=== PATIENT | male | born 1945 | race Two or more races ===

== ENCOUNTER 2022-08-21 11:35 | Inpatient (IN) | payer MEDICARE ==
[~2022-08-21] VITALS: Ht 160 cm; Wt 76.0 kg
[~2022-08-21 11:35] MED LIST: AMLO-257 PO; ASPI81TA87 PO; CHOL500043 PO; CLOP75TA60 PO; DOCU-385 PO; GLYB-145 PO; INSU100V SQ; LISI-893 PO; MODA100T65 PO; TAMS-13 PO
[2022-08-21] MEDS ORDERED: METF-1211 PO (11:56)
[2022-08-21 12:06] LABS: GLUCOSE,POINT OF CARE 220 MG/DL (70-110)
[2022-08-21 12:12] LABS: BASOPHILS % (AUTO) 0.2 % (0.0-2.0); EOSINOPHILS % (AUTO) 0.5 % (1.0-6.0); HEMATOCRIT 37.3 % (41-53); HEMOGLOBIN 12.3 g/dL (13.5-17.5); LYMPHOCYTES # (AUTO) 0.8 K/uL (1.0-4.8); LYMPHOCYTES % (AUTO) 6.8 % (22.0-44.0); MEAN CORPUSCULAR HEMOGLOBIN 31.5 pg (26.0-34.0); MEAN CORPUSCULAR HGB CONC 32.9 G/dL (31.0-37.0); MEAN CORPUSCULAR VOLUME 96 fL (80-100); MONOCYTES # (AUTO) 1.5 K/uL (0.1-1.0); MONOCYTES % (AUTO) 12.6 % (2.0-9.0); NEUTROPHILS # (AUTO) 9.2 K/uL (1.8-7.7); NEUTROPHILS % (AUTO) 79.9 % (40.0-70.0); PLATELET COUNT (AUTO) 239 K/uL (150-450)
[2022-08-21 12:19] LABS: CALCIUM, TOTAL 8.7 mg/dL (8.8-10.5); CREATININE 1.22 mg/dL (0.60-1.30); POTASSIUM 3.3 mmol/L (3.5-5.1)
[2022-08-21 12:23] LABS: PROTHROMBIN TIME 10.8 SEC (9.4-11.6)
[2022-08-21 12:42] LABS: COVID AG,FIA SOURCE NASAL SWAB
[2022-08-21 12:45] LABS: ALBUMIN 2.5 g/dL (3.4-5.0); BILIRUBIN,TOTAL 0.5 mg/dL (0.1-1.0); TOTAL PROTEIN, SERUM 6.8 g/dL (6.4-8.2)
[2022-08-21 12:50] LABS: ABG BASE EXCESS 1.5 mmol/L (-2.0-3.0); ABG CARBOXYHEMOGLOBIN 0.7 % (0.0-1.5); ABG METHEMOGLOBIN 0.3 % (0.0-1.5); ABG OXYGEN SATURATION 96.1 % (95.0-98.0); ABG OXYHEMOGLOBIN 95.1 % (94.0-100.0); ABG PCO2 36 mmHg (35-45); ABG PH 7.462 (7.35-7.450); ABG TOTAL HEMOGLOBIN 12.7 G/dL (12.0-18.0); PO2, ARTERIAL BG 84.2 mmHg (75.0-83.0); SOURCE, BLOOD GAS ARTERIAL
[2022-08-21 12:52] LABS: O2 DEVICE,BLOOD GAS BIPAP (ROOM AIR); SITE, BLOOD GAS LFT BRACHIAL; SPONTANEOUS VT, BG 412 ml
[2022-08-21] MEDS ORDERED: BACTDSB PO (13:02)
[2022-08-21] MEDS: FUROSEMIDE 40 MG/4 ML VIAL IVP SCH ×2 (13:11→20:29)
[2022-08-21] MEDS ORDERED: HEPARIN SODIUM,PORCINE 5,000 UNITS/ML VIAL IVP ONE ×2 (13:15)
[2022-08-21] MEDS ORDERED: HEPARIN SODIUM 25000 UNITS/D5W 250 ML IV PRN (13:15)
[2022-08-21] MEDS ORDERED: HEPARIN SODIUM,PORCINE 5,000 UNITS/ML VIAL IVP PRN ×2 (13:15)
[2022-08-21] MEDS: ATORVASTATIN CALCIUM 20 MG TABLET PO SCH (16:14)
[2022-08-21] MEDS ORDERED: MAGNESIUM HYDROXIDE SUSPENSION 30 ML UDCUP PO PRN (16:15)
[2022-08-21] MEDS ORDERED: BISACODYL 10 MG RECTAL RECTAL SUPPOSITORY PR PRN (16:15)
[2022-08-21] MEDS ORDERED: ZOLPIDEM TARTRATE 5 MG TABLET PO PRN (16:15)
[2022-08-21] MEDS ORDERED: DEXTROSE 50%-WATER 25 GM/50 ML SYRINGE IVP PRN (16:15)
[2022-08-21] MEDS ORDERED: MORPHINE SULFATE 2 MG/ML SYRINGE IVP PRN (16:15)
[2022-08-21] MEDS ORDERED: ONDANSETRON HCL 4 MG/2 ML VIAL IVP PRN (16:15)
[2022-08-21] MEDS ORDERED: ACETAMINOPHEN 325 MG TABLET PO PRN (16:15)
[2022-08-21] MEDS ORDERED: HYDROCODONE/ACETAMINOPHEN 5-325 MG TABLET PO PRN (16:15)
[2022-08-21 17:55] VITALS: BP 140/67
[2022-08-21 19:50] LABS: APPEARANCE,URINE CLEAR (CLEAR); BILIRUBIN,URINE NEGATIVE (NEGATIVE); GLUCOSE, URINE (UA) TRACE mg/dL (NEGATIVE); KETONES,URINE NEGATIVE (NEGATIVE); LEUKOCYTE ESTERASE ,URINE SMALL (NEGATIVE); NITRATE,URINE NEGATIVE (NEGATIVE); OCCULT BLOOD,URINE NEGATIVE (NEGATIVE); PROTEIN,URINE TRACE mg/dL (NEGATIVE); SPECIFIC GRAVITIY, URINE 1.012 (1.003-1.030); UROBILINOGEN,URINE <=1.0 mg/dL (<=1.0)
[2022-08-21 19:56] LABS: BACTERIA,URINE Rare /HPF (None Seen); FINE GRANULAR CASTS,URINE 0-2 /LPF (None Seen); RBC,URINE None Seen /HPF (0-2); SQUAMOUS EPITHELIAL CELL,UR Few /LPF (None Seen); WBC,URINE 0-2 /HPF (0-5)
[2022-08-21 20:05] VITALS: BP 128/65
[2022-08-21] MEDS: CefTRIAXone 1 GM/DEXTROSE 50 ML IV SCH (20:28)
[2022-08-21] MEDS: CARVEDILOL 6.25 MG TABLET PO SCH (20:29)
[2022-08-21] MEDS: DOCUSATE SODIUM 100 MG CAPSULE PO SCH (20:29)
[2022-08-21] MEDS ORDERED: SODIUM CHLORIDE 0.9% 1,000 ML ONE (21:01)
[2022-08-21 21:41] LABS: GLUCOMETER DEV NAME(LOC) 5N.2C; GLUCOSE,POINT OF CARE 187 MG/DL (70-110)
[2022-08-21] MEDS: DOXYCYCLINE HYCLATE 100 MG in DEXTROSE 5%-WATER 100 ML IV SCH (23:36)
[2022-08-21 23:41] LABS: GLUCOMETER DEV NAME(LOC) 5S.2C; GLUCOSE,POINT OF CARE 172 MG/DL (70-110)
[2022-08-22] MEDS ORDERED: HEPARIN SODIUM,PORCINE 5,000 UNITS/ML VIAL SQ SCH
[2022-08-22 00:09] VITALS: BP 124/41
[2022-08-22] MEDS ORDERED: HEPARIN SODIUM,PORCINE 5,000 UNITS/ML VIAL IVP PRN (06:15)
[2022-08-22] MEDS ORDERED: HEPARIN SODIUM,PORCINE 5,000 UNITS/ML VIAL IVP ONE (06:15)
[2022-08-22] MEDS: HEPARIN SODIUM 25000 UNITS/D5W 250 ML IV PRN ×2 (06:41→22:26)
[2022-08-22 06:45] LABS: BASOPHILS % (AUTO) 0.1 % (0.0-2.0); EOSINOPHILS % (AUTO) 0.7 % (1.0-6.0); HEMATOCRIT 35.5 % (41-53); HEMOGLOBIN 12.1 g/dL (13.5-17.5); LYMPHOCYTES # (AUTO) 0.7 K/uL (1.0-4.8); LYMPHOCYTES % (AUTO) 6.3 % (22.0-44.0); MEAN CORPUSCULAR HEMOGLOBIN 32.3 pg (26.0-34.0); MEAN CORPUSCULAR HGB CONC 34.2 G/dL (31.0-37.0); MEAN CORPUSCULAR VOLUME 94 fL (80-100); MONOCYTES # (AUTO) 1.2 K/uL (0.1-1.0); MONOCYTES % (AUTO) 10.9 % (2.0-9.0); NEUTROPHILS # (AUTO) 8.9 K/uL (1.8-7.7); PLATELET COUNT (AUTO) 259 K/uL (150-450); RED BLOOD CELL COUNT(AUTO) 3.76 MIL/uL (4.50-5.90); RED CELL DISTRIBUTION WIDTH 14.2 % (11.5-14.5)
[2022-08-22] MEDS: INSULIN LISPRO 100 UNITS/ML SQ PRN ×4 (06:47→20:46)
[2022-08-22 06:52] VITALS: BP 120/60
[2022-08-22 07:04] LABS: ANION GAP 7 mmol/L (8-16); CALCIUM, TOTAL 8.3 mg/dL (8.8-10.5); CARBON DIOXIDE 30 mmol/L (22-29); CHLORIDE 103 mmol/L (98-107); CHOL/HDL RATIO 6.7 (4.2-7.3); CHOLESTEROL 120 mg/dL (131-200); GLOMERULAR FILTR. RATE CALC > 60 mL/min (>60); GLUCOSE,RANDOM 209 mg/dL (70-110); HDL CHOLESTEROL 18 mg/dL (40-60); LDL CHOL (CALC.) 73 mg/dL (0-130); POTASSIUM 3.6 mmol/L (3.5-5.1); SODIUM SERUM 140 mmol/L (136-145); TRIGLYCERIDES 146 mg/dL (15-150); UREA NITROGEN, BLOOD 26 mg/dL (7-18)
[2022-08-22] MEDS: DOXYCYCLINE HYCLATE 100 MG in DEXTROSE 5%-WATER 100 ML IV SCH ×2 (08:05→22:00)
[2022-08-22] MEDS: ATORVASTATIN CALCIUM 20 MG TABLET PO SCH (08:05)
[2022-08-22] MEDS: FUROSEMIDE 40 MG/4 ML VIAL IVP SCH ×2 (08:05→20:44)
[2022-08-22] MEDS: DOCUSATE SODIUM 100 MG CAPSULE PO SCH ×2 (08:05→20:44)
[2022-08-22] MEDS: CARVEDILOL 6.25 MG TABLET PO SCH ×2 (08:05→20:44)
[2022-08-22] MEDS: ASPIRIN 81 MG DR TABLET PO SCH (08:05)
[2022-08-22] MEDS: PANTOPRAZOLE SODIUM 40 MG DR TABLET PO SCH (08:05)
[2022-08-22] MEDS: HEPARIN SODIUM,PORCINE 5,000 UNITS/ML VIAL IVP PRN (08:08)
[2022-08-22 08:10] VITALS: BP 122/60
[2022-08-22 10:16] LABS: GLUCOMETER DEV NAME(LOC) 5N.2C; GLUCOSE,POINT OF CARE 221 MG/DL (70-110)
[2022-08-22 11:34] VITALS: BP 127/59
[2022-08-22 15:19] VITALS: BP 115/63
[2022-08-22 20:36] VITALS: BP 123/52
[2022-08-22] MEDS: CefTRIAXone 1 GM/DEXTROSE 50 ML IV SCH (20:44)
[2022-08-23 00:21] VITALS: BP 141/70
[2022-08-23 06:21] LABS: GLUCOMETER DEV NAME(LOC) 5S.1B; GLUCOSE,POINT OF CARE 279 MG/DL (70-110)
[2022-08-23 06:21] LABS: GLUCOMETER DEV NAME(LOC) 5S.1B; GLUCOSE,POINT OF CARE 226 MG/DL (70-110)
[2022-08-23 06:21] LABS: GLUCOMETER DEV NAME(LOC) 5S.1B; GLUCOSE,POINT OF CARE 207 MG/DL (70-110)
[2022-08-23] MEDS: INSULIN LISPRO 100 UNITS/ML SQ PRN ×2 (06:46→12:30)
[2022-08-23 07:04] VITALS: BP 124/69
[2022-08-23 07:49] VITALS: BP 135/59
[2022-08-23 07:57] LABS: BASOPHILS % (AUTO) 0.3 % (0.0-2.0); EOSINOPHILS % (AUTO) 1.6 % (1.0-6.0); HEMATOCRIT 36.2 % (41-53); LYMPHOCYTES # (AUTO) 0.8 K/uL (1.0-4.8); LYMPHOCYTES % (AUTO) 9.4 % (22.0-44.0); MEAN CORPUSCULAR HEMOGLOBIN 31.7 pg (26.0-34.0); MEAN CORPUSCULAR HGB CONC 33.2 G/dL (31.0-37.0); MEAN CORPUSCULAR VOLUME 95 fL (80-100); MONOCYTES # (AUTO) 1.1 K/uL (0.1-1.0); MONOCYTES % (AUTO) 12.7 % (2.0-9.0); NEUTROPHILS # (AUTO) 6.7 K/uL (1.8-7.7); PLATELET COUNT (AUTO) 331 K/uL (150-450); RED BLOOD CELL COUNT(AUTO) 3.79 MIL/uL (4.50-5.90); RED CELL DISTRIBUTION WIDTH 14.1 % (11.5-14.5)
[2022-08-23 08:06] LABS: GLUCOMETER DEV NAME(LOC) 5N.2C; GLUCOSE,POINT OF CARE 193 MG/DL (70-110)
[2022-08-23 08:07] LABS: ANION GAP 8 mmol/L (8-16); CALCIUM, TOTAL 8.4 mg/dL (8.8-10.5); CARBON DIOXIDE 29 mmol/L (22-29); CHLORIDE 103 mmol/L (98-107); CREATININE 1.14 mg/dL (0.60-1.30); GLOMERULAR FILTR. RATE CALC > 60 mL/min (>60); GLUCOSE,RANDOM 234 mg/dL (70-110); POTASSIUM 3.5 mmol/L (3.5-5.1); SODIUM SERUM 140 mmol/L (136-145); UREA NITROGEN, BLOOD 32 mg/dL (7-18)
[2022-08-23] MEDS: DOXYCYCLINE HYCLATE 100 MG in DEXTROSE 5%-WATER 100 ML IV SCH ×2 (10:38→22:12)
[2022-08-23] MEDS: FUROSEMIDE 40 MG/4 ML VIAL IVP SCH ×2 (10:38→20:31)
[2022-08-23] MEDS: CARVEDILOL 6.25 MG TABLET PO SCH ×2 (10:39→20:32)
[2022-08-23] MEDS: ASPIRIN 81 MG DR TABLET PO SCH (10:39)
[2022-08-23] MEDS: DOCUSATE SODIUM 100 MG CAPSULE PO SCH ×2 (10:39→20:32)
[2022-08-23] MEDS: PANTOPRAZOLE SODIUM 40 MG DR TABLET PO SCH (10:39)
[2022-08-23] MEDS: ATORVASTATIN CALCIUM 20 MG TABLET PO SCH (10:39)
[2022-08-23 12:02] VITALS: BP 127/57
[2022-08-23 15:42] VITALS: BP 120/71
[2022-08-23] MEDS: HEPARIN SODIUM 25000 UNITS/D5W 250 ML IV PRN (19:19)
[2022-08-23] MEDS: CefTRIAXone 1 GM/DEXTROSE 50 ML IV SCH (20:23)
[2022-08-23 20:28] VITALS: BP 108/62
[2022-08-24] VITALS (15 sets, daily range): BP systolic 122–149; BP diastolic 52–87
[2022-08-24] MEDS: INSULIN LISPRO 100 UNITS/ML SQ PRN (05:40)
[2022-08-24 06:01] LABS: GLUCOMETER DEV NAME(LOC) 5S.1B; GLUCOSE,POINT OF CARE 195 MG/DL (70-110)
[2022-08-24 06:02] LABS: GLUCOMETER DEV NAME(LOC) 5S.1B; GLUCOSE,POINT OF CARE 153 MG/DL (70-110)
[2022-08-24 06:02] LABS: GLUCOMETER DEV NAME(LOC) 5S.1B; GLUCOSE,POINT OF CARE 133 MG/DL (70-110)
[2022-08-24 07:19] LABS: ANION GAP 10 mmol/L (8-16); CALCIUM, TOTAL 8.7 mg/dL (8.8-10.5); CARBON DIOXIDE 30 mmol/L (22-29); CHLORIDE 100 mmol/L (98-107); CREATININE 1.07 mg/dL (0.60-1.30); GLOMERULAR FILTR. RATE CALC > 60 mL/min (>60); GLUCOSE,RANDOM 159 mg/dL (70-110); POTASSIUM 3.6 mmol/L (3.5-5.1); SODIUM SERUM 140 mmol/L (136-145); UREA NITROGEN, BLOOD 29 mg/dL (7-18)
[2022-08-24 07:25] LABS: BASOPHILS % (AUTO) 0.9 % (0.0-2.0); EOSINOPHILS % (AUTO) 1.1 % (1.0-6.0); HEMATOCRIT 36.8 % (41-53); HEMOGLOBIN 12.4 g/dL (13.5-17.5); MEAN CORPUSCULAR HEMOGLOBIN 32.5 pg (26.0-34.0); MEAN CORPUSCULAR HGB CONC 33.8 G/dL (31.0-37.0); MEAN CORPUSCULAR VOLUME 96 fL (80-100); MONOCYTES # (AUTO) 1.1 K/uL (0.1-1.0); NEUTROPHILS # (AUTO) 8.5 K/uL (1.8-7.7); PLATELET COUNT (AUTO) 360 K/uL (150-450); RED BLOOD CELL COUNT(AUTO) 3.82 MIL/uL (4.50-5.90); RED CELL DISTRIBUTION WIDTH 14.1 % (11.5-14.5)
[2022-08-24] MEDS: HEPARIN SODIUM 25000 UNITS/D5W 250 ML IV PRN (08:50)
[2022-08-24] MEDS: HEPARIN SODIUM,PORCINE 5,000 UNITS/ML VIAL IVP PRN (09:03)
[2022-08-24] MEDS: DOCUSATE SODIUM 100 MG CAPSULE PO SCH ×2 (09:06→20:11)
[2022-08-24] MEDS: DOXYCYCLINE HYCLATE 100 MG in DEXTROSE 5%-WATER 100 ML IV SCH ×2 (09:06→20:20)
[2022-08-24] MEDS: PANTOPRAZOLE SODIUM 40 MG DR TABLET PO SCH (09:08)
[2022-08-24] MEDS: CARVEDILOL 6.25 MG TABLET PO SCH ×2 (09:08→20:11)
[2022-08-24] MEDS: ATORVASTATIN CALCIUM 20 MG TABLET PO SCH (09:08)
[2022-08-24] MEDS: FUROSEMIDE 40 MG/4 ML VIAL IVP SCH ×2 (09:08→20:11)
[2022-08-24] MEDS: ASPIRIN 81 MG DR TABLET PO SCH (09:09)
[2022-08-24] MEDS ORDERED: PERFLUTREN PROTEIN-A MICROSPHERES 0.22 MG/ML 3 ML VIAL IVP ONE (10:15)
[2022-08-24] MEDS ORDERED: SODIUM BICARBONATE 50 MEQ/50 ML VIAL ONE (11:50)
[2022-08-24] MEDS ORDERED: LIDOCAINE/PF 1% 30 ML VIAL ONE (11:50)
[2022-08-24] MEDS ORDERED: NITROGLYCERIN 50 MG/D5% WATER 250 ML ONE (11:50)
[2022-08-24] MEDS ORDERED: VERAPAMIL HCL 2.5 MG/ML 2 ML VIAL ONE (11:50)
[2022-08-24] MEDS ORDERED: IOHEXOL 300 MG/ML 100 ML VIAL ONE ×2 (11:51→13:19)
[2022-08-24] MEDS ORDERED: HEPARIN SODIUM 1000 UNITS/NS 1,000 ML ONE (11:51)
[2022-08-24] MEDS ORDERED: FentaNYL CITRATE PF 100 MCG/2 ML VIAL ONE (12:33)
[2022-08-24] MEDS ORDERED: LIDOCAINE 1% 30 ML/SOD BICARB 8.4% 4 ML SQ ONE (12:45)
[2022-08-24] MEDS ORDERED: VERAPAMIL HCL 2.5 MG/ML 2 ML VIAL IARTER ONE (12:45)
[2022-08-24] MEDS ORDERED: HEPARIN SODIUM 1000 UNITS/NS 1,000 ML IARTER ONE (12:45)
[2022-08-24] MEDS ORDERED: NITROGLYCERIN/D5W 50 MG/250 ML IV BOTTLE IARTER ONE (12:45)
[2022-08-24] MEDS ORDERED: HEPARIN SODIUM,PORCINE 1,000 UNITS/ML 10 ML VIAL IARTER ONE (12:45)
[2022-08-24] MEDS ORDERED: FentaNYL CITRATE PF 100 MCG/2 ML VIAL IVP ONE ×2 (12:45→13:00)
[2022-08-24] MEDS ORDERED: IOHEXOL 300 MG/ML 100 ML VIAL IARTER ONE (12:45)
[2022-08-24] MEDS ORDERED: HEPARIN SODIUM,PORCINE 1,000 UNITS/ML 10 ML VIAL IVP ONE (13:30)
[2022-08-24] MEDS ORDERED: PHENYLEPHRINE HCL IN 0.9% NACL 400 MCG/10 ML SYRINGE IVP ONE ×2 (13:36→13:45)
[2022-08-24] MEDS ORDERED: PHENYLEPHRINE 200 MG/D5%-WATER 250 ML IV ONE (13:38)
[2022-08-24] MEDS ORDERED: IOHEXOL 300 MG/ML 50 ML VIAL ONE (13:47)
[2022-08-24] MEDS ORDERED: TICAGRELOR 90 MG TABLET ONE (14:00)
[2022-08-24] MEDS ORDERED: TICAGRELOR 90 MG TABLET PO ONE (14:15)
[2022-08-24] MEDS: CefTRIAXone 1 GM/DEXTROSE 50 ML IV SCH (19:47)
[2022-08-24] MEDS: TICAGRELOR 90 MG TABLET PO SCH (20:20)
[2022-08-24 20:56] LABS: GLUCOMETER DEV NAME(LOC) 5S.1B; GLUCOSE,POINT OF CARE 132 MG/DL (70-110)
[2022-08-25 00:02] VITALS: BP 140/64
[2022-08-25 02:47] LABS: GLUCOMETER DEV NAME(LOC) 5N.2C; GLUCOSE,POINT OF CARE 150 MG/DL (70-110)
[2022-08-25 02:47] LABS: GLUCOMETER DEV NAME(LOC) 5N.2C; GLUCOSE,POINT OF CARE 135 MG/DL (70-110)
[2022-08-25 04:15] VITALS: BP 131/72
[2022-08-25 05:42] LABS: GLUCOMETER DEV NAME(LOC) 5S.1B; GLUCOSE,POINT OF CARE 115 MG/DL (70-110)
[2022-08-25 07:25] LABS: BASOPHILS % (AUTO) 0.6 % (0.0-2.0); HEMATOCRIT 37.8 % (41-53); HEMOGLOBIN 12.7 g/dL (13.5-17.5); LYMPHOCYTES # (AUTO) 0.7 K/uL (1.0-4.8); LYMPHOCYTES % (AUTO) 5.1 % (22.0-44.0); MEAN CORPUSCULAR HGB CONC 33.5 G/dL (31.0-37.0); MEAN CORPUSCULAR VOLUME 95 fL (80-100); MONOCYTES # (AUTO) 1.1 K/uL (0.1-1.0); MONOCYTES % (AUTO) 8.2 % (2.0-9.0); NEUTROPHILS % (AUTO) 84.1 % (40.0-70.0); PLATELET COUNT (AUTO) 401 K/uL (150-450); RED BLOOD CELL COUNT(AUTO) 3.96 MIL/uL (4.50-5.90); RED CELL DISTRIBUTION WIDTH 14.1 % (11.5-14.5)
[2022-08-25 08:00] VITALS: BP 139/64
[2022-08-25] MEDS: FUROSEMIDE 40 MG/4 ML VIAL IVP SCH ×2 (08:20→20:23)
[2022-08-25] MEDS: ASPIRIN 81 MG DR TABLET PO SCH (08:20)
[2022-08-25] MEDS: CARVEDILOL 6.25 MG TABLET PO SCH ×2 (08:20→20:23)
[2022-08-25] MEDS: TICAGRELOR 90 MG TABLET PO SCH ×2 (08:20→20:23)
[2022-08-25] MEDS: PANTOPRAZOLE SODIUM 40 MG DR TABLET PO SCH (08:21)
[2022-08-25] MEDS: DOCUSATE SODIUM 100 MG CAPSULE PO SCH ×2 (08:21→20:23)
[2022-08-25] MEDS: ATORVASTATIN CALCIUM 20 MG TABLET PO SCH (08:21)
[2022-08-25] MEDS: DOXYCYCLINE HYCLATE 100 MG in DEXTROSE 5%-WATER 100 ML IV SCH ×2 (08:23→21:41)
[2022-08-25] MEDS ORDERED: SODIUM CHLORIDE 0.9% 250 ML IV ONE (08:29)
[2022-08-25] MEDS: INSULIN LISPRO 100 UNITS/ML SQ PRN ×3 (11:45→20:41)
[2022-08-25 15:49] VITALS: BP 110/48
[2022-08-25 17:26] LABS: GLUCOMETER DEV NAME(LOC) 5N.2C; GLUCOSE,POINT OF CARE 188 MG/DL (70-110)
[2022-08-25 17:31] LABS: GLUCOMETER DEV NAME(LOC) 5N.2C; GLUCOSE,POINT OF CARE 252 MG/DL (70-110)
[2022-08-25 20:00] VITALS: BP 147/72
[2022-08-25] MEDS: CefTRIAXone 1 GM/DEXTROSE 50 ML IV SCH (20:23)
[2022-08-26] VITALS: BP 145/68
[2022-08-26 04:28] VITALS: BP 147/64
[2022-08-26] MEDS: INSULIN LISPRO 100 UNITS/ML SQ PRN ×2 (05:52→17:32)
[2022-08-26 07:06] LABS: GLUCOMETER DEV NAME(LOC) 5S.1B; GLUCOSE,POINT OF CARE 179 MG/DL (70-110)
[2022-08-26 07:06] LABS: GLUCOMETER DEV NAME(LOC) 5S.1B; GLUCOSE,POINT OF CARE 280 MG/DL (70-110)
[2022-08-26 07:24] LABS: ANION GAP 9 mmol/L (8-16); CARBON DIOXIDE 31 mmol/L (22-29); CHLORIDE 103 mmol/L (98-107); CREATININE 0.96 mg/dL (0.60-1.30); GLOMERULAR FILTR. RATE CALC > 60 mL/min (>60); GLUCOSE,RANDOM 186 mg/dL (70-110); POTASSIUM 3.7 mmol/L (3.5-5.1); SODIUM SERUM 143 mmol/L (136-145); UREA NITROGEN, BLOOD 25 mg/dL (7-18)
[2022-08-26 07:33] VITALS: BP 145/66
[2022-08-26] MEDS: TICAGRELOR 90 MG TABLET PO SCH (08:42)
[2022-08-26] MEDS: ATORVASTATIN CALCIUM 20 MG TABLET PO SCH (08:42)
[2022-08-26] MEDS: ASPIRIN 81 MG DR TABLET PO SCH (08:42)
[2022-08-26] MEDS: CARVEDILOL 6.25 MG TABLET PO SCH (08:42)
[2022-08-26] MEDS: PANTOPRAZOLE SODIUM 40 MG DR TABLET PO SCH (08:42)
[2022-08-26] MEDS: DOCUSATE SODIUM 100 MG CAPSULE PO SCH (08:42)
[2022-08-26] MEDS: DOXYCYCLINE HYCLATE 100 MG in DEXTROSE 5%-WATER 100 ML IV SCH (08:44)
[2022-08-26] MEDS ORDERED: FUROSEMIDE 40 MG TABLET PO SCH (09:00)
[2022-08-26 11:02] LABS: BASOPHILS % (AUTO) 0.9 % (0.0-2.0); EOSINOPHILS % (AUTO) 2.6 % (1.0-6.0); HEMATOCRIT 37.5 % (41-53); HEMOGLOBIN 12.7 g/dL (13.5-17.5); LYMPHOCYTES # (AUTO) 0.9 K/uL (1.0-4.8); LYMPHOCYTES % (AUTO) 6.2 % (22.0-44.0); MEAN CORPUSCULAR HEMOGLOBIN 32.4 pg (26.0-34.0); MEAN CORPUSCULAR HGB CONC 33.8 G/dL (31.0-37.0); MEAN CORPUSCULAR VOLUME 96 fL (80-100); MONOCYTES % (AUTO) 6.6 % (2.0-9.0); NEUTROPHILS # (AUTO) 12.9 K/uL (1.8-7.7); NEUTROPHILS % (AUTO) 83.7 % (40.0-70.0); PLATELET COUNT (AUTO) 449 K/uL (150-450); RED BLOOD CELL COUNT(AUTO) 3.92 MIL/uL (4.50-5.90); RED CELL DISTRIBUTION WIDTH 14.6 % (11.5-14.5)
[2022-08-26 11:34] VITALS: BP 147/77
[2022-08-26 15:56] VITALS: BP 126/56
[2022-08-27 08:37] LABS: GLUCOMETER DEV NAME(LOC) 5N.2C; GLUCOSE,POINT OF CARE 284 MG/DL (70-110)
== END 2022-08-26 18:40 | disposition home or self-care (01) | DRG 246 ==
LOC: EMS 11:35 → AHU 14:19 → 5N 15:17
PROVIDERS: ADMIT Internal Medicine; ATTEND Internal Medicine
PROC: 5A09357 Assistance with Respiratory Ventilation, Less than 24 Consecutive Hours, Continuous Positive Airway Pressure (ICD-10-PCS; 2022-08-21)
PROC: 5A09357 Assistance with Respiratory Ventilation, Less than 24 Consecutive Hours, Continuous Positive Airway Pressure (ICD-10-PCS; 2022-08-22)
PROC: 5A09357 Assistance with Respiratory Ventilation, Less than 24 Consecutive Hours, Continuous Positive Airway Pressure (ICD-10-PCS; 2022-08-23)
PROC: 4A023N7 Measurement of Cardiac Sampling and Pressure, Left Heart, Percutaneous Approach (ICD-10-PCS; principal; 2022-08-24)
PROC: 027034Z Dilation of Coronary Artery, One Artery with Drug-eluting Intraluminal Device, Percutaneous Approach (ICD-10-PCS; 2022-08-24)
PROC: B2111ZZ Fluoroscopy of Multiple Coronary Arteries using Low Osmolar Contrast (ICD-10-PCS; 2022-08-24)
PROC: B2121ZZ Fluoroscopy of Single Coronary Artery Bypass Graft using Low Osmolar Contrast (ICD-10-PCS; 2022-08-24)
PROC: B3101ZZ Fluoroscopy of Thoracic Aorta using Low Osmolar Contrast (ICD-10-PCS; 2022-08-24)
PROC: B41F1ZZ Fluoroscopy of Right Lower Extremity Arteries using Low Osmolar Contrast (ICD-10-PCS; 2022-08-24)
PROC: 5A09357 Assistance with Respiratory Ventilation, Less than 24 Consecutive Hours, Continuous Positive Airway Pressure (ICD-10-PCS; 2022-08-24)
DX: I11.0 Hypertensive heart disease with heart failure (principal); I21.4 Non-ST elevation (NSTEMI) myocardial infarction; I50.41 Acute combined systolic (congestive) and diastolic (congestive) heart failure; J96.01 Acute respiratory failure with hypoxia; J18.9 Pneumonia, unspecified organism; I69.354 Hemiplegia and hemiparesis following cerebral infarction affecting left non-dominant side; Z66 Do not resuscitate; E11.65 Type 2 diabetes mellitus with hyperglycemia; E87.6 Hypokalemia; Z20.822 Contact with and (suspected) exposure to COVID-19; I25.10 Atherosclerotic heart disease of native coronary artery without angina pectoris; Z95.1 Presence of aortocoronary bypass graft; D64.9 Anemia, unspecified; E78.5 Hyperlipidemia, unspecified; F03.90 Unspecified dementia, unspecified severity, without behavioral disturbance, psychotic disturbance, mood disturbance, and anxiety; Z82.49 Family history of ischemic heart disease and other diseases of the circulatory system; Z83.3 Family history of diabetes mellitus; Z87.891 Personal history of nicotine dependence; Z91.199 Patient's noncompliance with other medical treatment and regimen due to unspecified reason; Z98.61 Coronary angioplasty status
CPT/HCPCS: 36600; 71045; 71250; 80048; 80053; 80061; 81001; 82550; 82805; 82962; 83036; 83880; 84145; 84484; 85025; 85610; 85730; 87081; 92920; 92928; 93005; 93306; 93459; 94660; 97116; 97162; 97166; 97530; 97535; 99291; C8924; J0696; J1644; J1940; J2370; J3010; J3490; J7030; J7050; J7060; Q9967; 36415-L1; 36415-TC; Z7610